=== PATIENT | male | born 1945 | race Caucasian/White ===

== ENCOUNTER 2016-08-23 17:44 | Inpatient (IN) | payer OTHER ==
[~2016-08-23] VITALS: Ht 185.4 cm; Wt 111.1 kg
[~2016-08-23 17:44] MED LIST: ASPIRIN EC325 MG PO; ASPIRIN81 M2 PO; ATORVASTATIN CA40 MG PO; DYAZIDE, MA1 CAPSULE PO; HYDROCHLOROTHIA25 MG PO; MOBIC15 MG PO; NEURONTIN400 MG PO; NORCO 5/3251 TABLET PO; PEPCID COMPLET1 EACH PO; PERCOCET 10/1 TABLET PO; Pain Med PO; VASOTEC10 MG PO; ZOFRAN8 MG PO; ZOLOFT100 MG PO
[2016-08-23 18:13] LABS: BASOPHIL COUNT 0.1 K/uL (0-0.1); EOSINOPHIL (%) 0.6 % (0-5); EOSINOPHIL COUNT 0.1 K/uL (0-0.3); HEMATOCRIT 50.4 % (38.0-50.0); IMMATURE GRANULOCYTE (%) 0.6 % (0.0-0.7); IMMATURE GRANULOCYTE COUNT 0.1 K/uL; INSTRUMENT ABS NEUTROPHIL CT 9.9 K/uL; LYMPHOCYTE COUNT 1.6 K/uL (1.0-2.8); MCHC 33.9 G/DL (30.0-36.0); MCV 91.3 FL (86-99); MEAN PLAT.VOLUME 9.8 uM^3 (9.0-12.4); MONOCYTE (%) 6.4 % (3-12); MONOCYTE COUNT 0.8 K/uL (0-0.8); NEUTROPHIL (%) 78.9 % (45-76); NEUTROPHIL COUNT 9.9 K/uL (1.8-6.4); PLATELET COUNT 179 K/uL (156-360); RBC DIS.WIDTH-SD 46.9 % (39-53); RED BLOOD COUNT 5.52 M/uL (4.00-5.50); WHITE BLOOD COUNT 12.5 K/uL (4.1-10.2)
[2016-08-23 18:24] LABS: CHLORIDE 104 mEq/L (99-109); POTASSIUM 3.5 mEq/L (3.7-5.4); SODIUM 139 mEq/L (136-147)
[2016-08-23 18:26] LABS: GLUCOSE 122 mg/dL (70-99)
[2016-08-23 18:27] LABS: ANION GAP 12 MEQ/L (2-14)
[2016-08-23 18:28] LABS: TOTAL BILIRUBIN 0.7 mg/dL (0.0-1.0)
[2016-08-23 18:30] LABS: ALKALINE PHOSPHATASE 61 IU/L (3-129); GFR ESTIMATE (CALCULATED) > 59 mL/min/
[2016-08-23 18:31] LABS: UREA NITROGEN (BUN) 23 mg/dL (9-23)
[2016-08-23 18:37] LABS: TROP-I INTERPRETATION NEGATIVE; TROPONIN-I < 0.01 ng/mL (0.0-0.30)
[2016-08-23 21:57] LABS: SERUM ETHYL ALCOHOL < 10 mg/dL
[2016-08-23 23:38] VITALS: BP 131/62
[2016-08-24 04:00] VITALS: BP 121/65
[2016-08-24 06:22] LABS: EOSINOPHIL (%) 0.1 % (0-5); HEMATOCRIT 45.9 % (38.0-50.0); IMMATURE GRANULOCYTE (%) 0.7 % (0.0-0.7); IMMATURE GRANULOCYTE COUNT 0.1 K/uL; INSTRUMENT ABS NEUTROPHIL CT 14.6 K/uL; MCH 32.1 PG (29.0-34.0); MCHC 34.6 G/DL (30.0-36.0); MCV 92.5 FL (86-99); MEAN PLAT.VOLUME 10.5 uM^3 (9.0-12.4); MONOCYTE (%) 4.4 % (3-12); MONOCYTE COUNT 0.7 K/uL (0-0.8); NEUTROPHIL (%) 88.6 % (45-76); NEUTROPHIL COUNT 14.6 K/uL (1.8-6.4); PLATELET COUNT 158 K/uL (156-360); RBC DIS.WIDTH-CV 14.3 % (11.8-14.6); RBC DIS.WIDTH-SD 48.4 % (39-53); RED BLOOD COUNT 4.96 M/uL (4.00-5.50); WHITE BLOOD COUNT 16.5 K/uL (4.1-10.2)
[2016-08-24 06:35] LABS: ALKALINE PHOSPHATASE 54 IU/L (3-129); ANION GAP 12 MEQ/L (2-14); CHLORIDE 105 MEQ/L (99-109); GFR ESTIMATE (CALCULATED) > 59 mL/min/; GLUCOSE 115 mg/dL (70-99); POTASSIUM 3.7 MEQ/L (3.7-5.4); SAMPLE HEMOLYSIS CHECK 0; SAMPLE ICTERIC CHECK 0; SAMPLE LIPEMIA CHECK 0; SODIUM 139 MEQ/L (136-147); TOTAL BILIRUBIN 1.2 MG/DL (0.0-1.0); UREA NITROGEN (BUN) 22 mg/dL (9-23)
[2016-08-24 07:33] VITALS: BP 119/75
[2016-08-24 11:41] VITALS: BP 109/56
[2016-08-24] MEDS ORDERED: ENALAPRIL MALEA10 MG PO (12:01)
[2016-08-24] MEDS ORDERED: ASPIRIN EC325 MG PO (12:01)
[2016-08-24] MEDS ORDERED: LYRICA50 MG PO (12:03)
[2016-08-24] MEDS ORDERED: PERCOCET 10/1 TABLET PO (12:04)
[2016-08-24] MEDS ORDERED: VENTOLIN HFA18 GM IH (12:08)
[2016-08-24] MEDS ORDERED: FLUNISOLIDE25 ML BOTH NARES (12:08)
[2016-08-24 15:29] VITALS: BP 129/68
[2016-08-24 19:10] VITALS: BP 116/55
[2016-08-25 00:25] VITALS: BP 130/81
[2016-08-25 02:44] LABS: AMPHETAMINES QUANT VALUE 0 NG/ML; BARBITUATES QUANT VALUE 0 NG/ML; BENZODIAZEPINES QUANT VALUE 0 NG/ML; BENZODIAZEPINES, URINE SCREEN Negative (200 ng/mL); MARIJUANA QUANT VALUE 0 NG/ML; OPIATES QUANTITATIVE VALUE 0 NG/ML; PHENCYCLIDINE QUANT VALUE 0 NG/ML
[2016-08-25 04:40] VITALS: BP 133/68
[2016-08-25 05:57] LABS: C DIFF TOXIN NEGATIVE (NEGATIVE)
[2016-08-25 05:58] LABS: PROBE CHECK PASS; SPECIMEN PROCESSING CONTROL PASS
[2016-08-25 06:18] LABS: HEMATOCRIT 41.1 % (38.0-50.0); MCHC 32.8 G/DL (30.0-36.0); MCV 94.3 FL (86-99); MEAN PLAT.VOLUME 10.5 uM^3 (9.0-12.4); PLATELET COUNT 115 K/uL (156-360); RBC DIS.WIDTH-CV 14.1 % (11.8-14.6); RBC DIS.WIDTH-SD 49.6 % (39-53); RED BLOOD COUNT 4.36 M/uL (4.00-5.50); WHITE BLOOD COUNT 6.4 K/uL (4.1-10.2)
[2016-08-25 06:38] LABS: ANION GAP 6 MEQ/L (2-14); CHLORIDE 111 MEQ/L (99-109); GFR ESTIMATE (CALCULATED) > 59 mL/min/; GLUCOSE 90 mg/dL (70-99); POTASSIUM 3.4 MEQ/L (3.7-5.4); SAMPLE HEMOLYSIS CHECK 0; SAMPLE ICTERIC CHECK 0; SAMPLE LIPEMIA CHECK 0; SODIUM 141 MEQ/L (136-147); UREA NITROGEN (BUN) 17 mg/dL (9-23)
[2016-08-25 08:21] LABS: INTERNAL CONTROL VALID? YES
[2016-08-25 08:40] VITALS: BP 138/83
[2016-08-25 11:23] VITALS: BP 137/71
[2016-08-25] MEDS ORDERED: AUGMENTIN875 MG PO (14:10)
== END 2016-08-25 18:59 | disposition home or self-care (01) | DRG 871 ==
LOC: EME 17:44 → 5WEST 20:47 → EDOF 20:47 → 5WEST 23:12
PROVIDERS: Emergency Medicine; Hospitalist; Internal Medicine
DX: A41.9 Sepsis, unspecified organism (principal); J69.0 Pneumonitis due to inhalation of food and vomit; I69.354 Hemiplegia and hemiparesis following cerebral infarction affecting left non-dominant side; E78.5 Hyperlipidemia, unspecified; E86.0 Dehydration; E87.6 Hypokalemia; G89.29 Other chronic pain; I10 Essential (primary) hypertension; I25.10 Atherosclerotic heart disease of native coronary artery without angina pectoris; I25.2 Old myocardial infarction; I45.9 Conduction disorder, unspecified; J98.11 Atelectasis; M19.90 Unspecified osteoarthritis, unspecified site; R32 Unspecified urinary incontinence; R15.9 Full incontinence of feces; Z87.891 Personal history of nicotine dependence; Z79.82 Long term (current) use of aspirin; Z79.899 Other long term (current) drug therapy; Z95.5 Presence of coronary angioplasty implant and graft; Z99.3 Dependence on wheelchair; M25.552 Pain in left hip; R26.2 Difficulty in walking, not elsewhere classified; R55 Syncope and collapse; E66.01 Morbid (severe) obesity due to excess calories; Z68.32 Body mass index [BMI] 32.0-32.9, adult
CPT/HCPCS: 71010; 71250; 80048; 80053; 80306 90; 81003; 83605; 84484; 85025; 85027; 87040; 87070; 87205; 87449; 87493; 93005; 94799; 99202; 99281; 99285; G0378; G0480; G8978 GP CI; G8979 GP CH; G8987 GO CI; G8988 GO CH; J0696; J2405; J3480; J7030; J7050; S0030